=== PATIENT | male | born 1965 | race Caucasian/White ===

== ENCOUNTER 2022-10-05 18:04 | Emergency (ER) | payer MEDICAID ==
[~2022-10-05] VITALS: Ht 182.9 cm; Wt 72.7 kg
[~2022-10-05 18:04] MED LIST: AMI25T PO; BISA-172 PO; OXYB5TAB16 PO
--- NOTE | 2022-10-05 18:24 | NUR ---
PT REFUSES TO BE MONITORED
[2022-10-05] MEDS ORDERED: amLODIPine 5mg tablet PO ONE (18:55)
[2022-10-05] MEDS ORDERED: AMLO2.5T2 PO (18:57)
[2022-10-05] MEDS ORDERED: NALO4SPR BOTHNARES (18:57)
[2022-10-05 19:55] VITALS: BP 169/114
--- NOTE | 2022-10-05 20:24 | NUR ---
MD AWARE OF BP
== END 2022-10-05 20:26 | disposition home or self-care (01) ==
LOC: ER 18:05
DX: T65.221A Toxic effect of tobacco cigarettes, accidental (unintentional), initial encounter (principal); R41.82 Altered mental status, unspecified; I10 Essential (primary) hypertension; G89.29 Other chronic pain; F32.A Depression, unspecified; Z88.6 Allergy status to analgesic agent; Z88.8 Allergy status to other drugs, medicaments and biological substances; Z79.899 Other long term (current) drug therapy; Y92.89 Other specified places as the place of occurrence of the external cause
CPT/HCPCS: 99284; J7030